=== PATIENT | female | born 1950 | race Caucasian/White ===

== ENCOUNTER 2016-04-18 12:59 | Inpatient (IN) | payer OTHER ==
[~2016-04-18] VITALS: Ht 167.6 cm; Wt 89.2 kg
[2016-04-18] MEDS ORDERED: DEXTROSE 50%, 50ML SYRINGE ONE (13:33)
[2016-04-18 13:53] LABS: HEMOGLOBIN 16.2 g/dL (11.7-16.4)
[2016-04-18] MEDS ORDERED: SODIUM CHLORIDE FLUSH 10ML SYR IVF ONE (14:00)
[2016-04-18 14:04] LABS: BLOOD UREA NITROGEN 12 mg/dL (7-18)
[2016-04-18] MEDS ORDERED: DEXTROSE 50%, 50ML SYRINGE IVPush ONE (14:30)
[2016-04-18] MEDS ORDERED: DEXTROSE 5%, 100ML IV ONE (14:30)
[2016-04-18 18:06] LABS: IS PT STATUS REG ER OR PRE ER? YES
[2016-04-18] MEDS ORDERED: ALBUTEROL/IPRATROPIUM 2.5MG/0.5MG, 3 ML NPPB ONE (19:00)
[2016-04-18] MEDS ORDERED: HYDR25TA6 PO (20:25)
[2016-04-18] MEDS ORDERED: GLYB5TAB3 PO (20:25)
[2016-04-18] MEDS ORDERED: METF10002 PO (20:25)
[2016-04-18] MEDS ORDERED: FLUO40CA9 PO (20:25)
[2016-04-18] MEDS ORDERED: ENAL20TA PO (20:25)
[2016-04-18] MEDS ORDERED: VERA240T86 PO (20:25)
[2016-04-18] MEDS ORDERED: FURO20TA3 PO (20:25)
[2016-04-18] MEDS ORDERED: SODIUM CHLORIDE FLUSH 10ML SYR IVF PRN (21:30)
[2016-04-18] MEDS ORDERED: ALBUTEROL/IPRATROPIUM 2.5MG/0.5MG, 3 ML NPPB PRN (22:30)
[2016-04-18 22:46] VITALS: BP 161/77
[2016-04-18] MEDS ORDERED: POLYETHYLENE GLYCOL 17 GM PACKET PO PRN (23:30)
[2016-04-18] MEDS ORDERED: DOCUSATE 100 MG CAPSULE PO PRN (23:30)
[2016-04-19 02:25] VITALS: BP 151/90
[2016-04-19 06:13] LABS: BLOOD UREA NITROGEN 18 mg/dL (7-18)
[2016-04-19 06:44] VITALS: BP 141/84
[2016-04-19] MEDS: GlyBURIDE 5 MG TABLET PO SCH (08:02)
[2016-04-19] MEDS: HYDROCHLOROTHIAZIDE 25 MG TABLET PO SCH (08:02)
[2016-04-19] MEDS: ENALAPRIL 20MG TABLET PO SCH (08:02)
[2016-04-19] MEDS: VERAPAMIL ER 240MG TABLET.ER PO SCH ×2 (08:02→21:44)
[2016-04-19] MEDS ORDERED: FLUTICASONE/VILANTEROL 100-25MCG/INH INH SCH (09:00)
[2016-04-19] MEDS ORDERED: ALBUTEROL SULFATE 2.5 MG/3 ML ONE (11:16)
[2016-04-19] MEDS ORDERED: ALBUTEROL SULFATE 2.5 MG/3 ML NPPB PRN (11:30)
[2016-04-19 13:40] VITALS: BP 148/81
[2016-04-19 17:45] VITALS: BP 155/91
[2016-04-19 20:00] VITALS: BP 150/88
[2016-04-20 03:18] VITALS: BP 129/81
[2016-04-20] MEDS ORDERED: ALBUTEROL SULFATE 2.5 MG/3 ML NPPB SCH (07:00)
[2016-04-20 07:55] VITALS: BP 124/75
[2016-04-20] MEDS: ENALAPRIL 20MG TABLET PO SCH (08:03)
[2016-04-20] MEDS: GlyBURIDE 5 MG TABLET PO SCH (08:03)
[2016-04-20] MEDS: HYDROCHLOROTHIAZIDE 25 MG TABLET PO SCH (08:04)
[2016-04-20] MEDS: VERAPAMIL ER 240MG TABLET.ER PO SCH (08:04)
[2016-04-20] MEDS ORDERED: FLUTICASONE/VILANTEROL 200-25MCG/INH INH SCH (09:00)
[2016-04-20] MEDS ORDERED: PRED20TA PO (12:54)
[2016-04-20] MEDS ORDERED: ALBU2.5V NEB (12:58)
[2016-04-20] MEDS ORDERED: ALBUTEROL SULFATE 2.5 MG/3 ML NPPB PRN (13:00)
[2016-04-20 13:46] VITALS: BP 111/67
[2016-04-20 15:48] VITALS: BP 147/80
== END 2016-04-20 15:45 | disposition home or self-care (01) | DRG 189 ==
LOC: ED 17:38 → INTOOBSV 21:06 → EDIP 21:06 → 5SO 22:38 → OBSVTOIN 04-19 15:12 → 4EST 04-19 17:33 → 4NOR 04-20 09:11
PROVIDERS: ADMIT Student in an Organized Health Care Education/Training Program; ATTEND Student in an Organized Health Care Education/Training Program
DX: J96.01 Acute respiratory failure with hypoxia (principal); J45.41 Moderate persistent asthma with (acute) exacerbation; E11.9 Type 2 diabetes mellitus without complications; E86.9 Volume depletion, unspecified; F17.210 Nicotine dependence, cigarettes, uncomplicated; F32.9 Major depressive disorder, single episode, unspecified; I10 Essential (primary) hypertension; E87.6 Hypokalemia; Z66 Do not resuscitate; Z82.49 Family history of ischemic heart disease and other diseases of the circulatory system; Z83.3 Family history of diabetes mellitus; Z91.19 Patient's noncompliance with other medical treatment and regimen; Z99.81 Dependence on supplemental oxygen; Z90.89 Acquired absence of other organs; Z98.890 Other specified postprocedural states; Z91.048 Other nonmedicinal substance allergy status; Z79.84 Long term (current) use of oral hypoglycemic drugs; Z79.899 Other long term (current) drug therapy; J06.9 Acute upper respiratory infection, unspecified
CPT/HCPCS: 36415; 71010; 80048; 81001; 82040; 82947; 82962; 83880; 84484; 85025; 87086; 93005; 94640; G0378; J7613; J7620; J7512

== ENCOUNTER 2017-02-01 12:50 | Inpatient (IN) | payer MEDICARE ==
[~2017-02-01] VITALS: Ht 152.4 cm; Wt 93.1 kg
[~2017-02-01 12:50] MED LIST: ALBU2.5V NEB; ENAL20TA PO; FLUO40CA9 PO; FURO20TA3 PO; GLYB5TAB3 PO; HYDR25TA6 PO; METF10002 PO; PRED20TA PO; VERA240T86 PO
[2017-02-01] MEDS ORDERED: SODIUM CHLORIDE 0.9% 1,000 ML IV ONE ×2 (13:30→16:54)
[2017-02-01] MEDS ORDERED: ALBUTEROL SULFATE 2.5 MG/3 ML NPPB ONE (13:30)
[2017-02-01] MEDS ORDERED: ACETAMINOPHEN 325 MG TABLET PO ONE (14:00)
[2017-02-01] MEDS ORDERED: ALBUTEROL SULFATE 2.5 MG/3 ML ONE (14:02)
[2017-02-01 14:06] LABS: RAPID INFLUENZA A POSITIVE (Negative); RAPID INFLUENZA B Negative (Negative)
[2017-02-01 14:37] LABS: HEMATOCRIT 40.1 % (34.6-47.8); HEMOGLOBIN 13.8 g/dL (11.7-16.4); WHITE BLOOD COUNT 8.6 x10^3/uL (3.4-10)
[2017-02-01 14:47] LABS: ASPARTATE AMINO TRANSFERASE 30 U/L (15-37); BLOOD UREA NITROGEN 13 mg/dL (7-18)
[2017-02-01 14:58] LABS: IS PT STATUS REG ER OR PRE ER? YES
[2017-02-01] MEDS ORDERED: DEXTROSE 50%, 50ML SYRINGE ONE (15:45)
[2017-02-01] MEDS ORDERED: DEXTROSE 50%, 50ML SYRINGE IVPush ONE (16:00)
[2017-02-01] MEDS ORDERED: CEFTRIAXONE PMX 1GM/50ML 50 ML ONE (16:39)
[2017-02-01] MEDS ORDERED: CEFTRIAXONE PMX 1GM/50ML 50 ML IVPB ONE (17:00)
[2017-02-01] MEDS ORDERED: SODIUM CHLORIDE FLUSH 10ML SYR IVF PRN (17:00)
[2017-02-01] MEDS ORDERED: GLUCAGON 1 MG IM PRN (17:30)
[2017-02-01] MEDS ORDERED: DEXTROSE 4 GM TAB.CHEW PO PRN (17:30)
[2017-02-01] MEDS: NICOTINE 14MG/24 HR PATCH.TD24 TD SCH (17:30)
[2017-02-01] MEDS ORDERED: DEXTROSE 50%, 50ML SYRINGE IVPush PRN (17:30)
[2017-02-01] MEDS ORDERED: ACETAMINOPHEN 325 MG TABLET PO PRN (17:30)
[2017-02-01 20:00] VITALS: BP 131/72
[2017-02-01] MEDS: INSULIN ASPART 100 UNITS/ML, PEN SQ-INSULIN SCH (21:00)
[2017-02-01] MEDS: SODIUM CHLORIDE FLUSH 10ML SYR IVF SCH (21:30)
[2017-02-01] MEDS ORDERED: PLEASE ENTER ALLERGIES MC SCH ×2 (21:30)
[2017-02-01] MEDS: HEPARIN 5,000 UNITS/ML, 1ML SQ SCH (21:47)
[2017-02-01] MEDS: VERAPAMIL ER 240MG TABLET.ER PO SCH (21:47)
[2017-02-01] MEDS: OSELTAMIVIR 75 MG CAPSULE PO SCH (21:47)
[2017-02-02] MEDS: HEPARIN 5,000 UNITS/ML, 1ML SQ SCH ×3 (02:23→17:30)
[2017-02-02 02:30] VITALS: BP 123/70
[2017-02-02 04:58] LABS: HEMATOCRIT 37.8 % (34.6-47.8); WHITE BLOOD COUNT 9.9 x10^3/uL (3.4-10)
[2017-02-02 05:04] LABS: BLOOD UREA NITROGEN 19 mg/dL (7-18)
[2017-02-02 06:37] VITALS: BP 112/64
[2017-02-02] MEDS: INSULIN ASPART 100 UNITS/ML, PEN SQ-INSULIN SCH ×5 (07:00→20:31)
[2017-02-02] MEDS: ALBUTEROL/IPRATROPIUM 2.5MG/0.5MG, 3 ML NPPB SCH ×4 (07:00→18:53)
[2017-02-02] MEDS: SODIUM CHLORIDE FLUSH 10ML SYR IVF SCH ×2 (09:00→20:32)
[2017-02-02] MEDS: SENNA/DOCUSATE TABLET PO SCH (09:00)
[2017-02-02] MEDS: HYDROCHLOROTHIAZIDE 25 MG TABLET PO SCH (09:48)
[2017-02-02] MEDS: VERAPAMIL ER 240MG TABLET.ER PO SCH ×2 (09:48→20:32)
[2017-02-02] MEDS: FLUOXETINE 20 MG CAPSULE PO SCH (09:48)
[2017-02-02] MEDS: ENALAPRIL 20MG TABLET PO SCH (09:49)
[2017-02-02] MEDS: OSELTAMIVIR 75 MG CAPSULE PO SCH ×2 (09:49→20:31)
[2017-02-02] MEDS: FLUTICASONE/VILANTEROL 100-25MCG/INH INH SCH (12:37)
[2017-02-02] MEDS ORDERED: GUAIFENESIN/DM 200-20MG, 10ML UDC PO PRN (15:30)
[2017-02-02 15:54] VITALS: BP 104/63
[2017-02-02] MEDS: NICOTINE 14MG/24 HR PATCH.TD24 TD SCH (17:30)
[2017-02-02 20:04] VITALS: BP 126/70
[2017-02-03] MEDS: HEPARIN 5,000 UNITS/ML, 1ML SQ SCH ×2 (01:50→09:30)
[2017-02-03 02:07] VITALS: BP 123/68
[2017-02-03] MEDS ORDERED: PNEUMOCOCCAL 23 VACCINE IM-VACC ONE (06:30)
[2017-02-03 06:44] LABS: ASPARTATE AMINO TRANSFERASE 22 U/L (15-37); BLOOD UREA NITROGEN 31 mg/dL (7-18)
[2017-02-03] MEDS: INSULIN ASPART 100 UNITS/ML, PEN SQ-INSULIN SCH (07:00)
[2017-02-03] MEDS: ALBUTEROL/IPRATROPIUM 2.5MG/0.5MG, 3 ML NPPB SCH (07:37)
[2017-02-03 08:07] VITALS: BP 101/53
[2017-02-03] MEDS ORDERED: PRED20TA PO (08:07)
[2017-02-03] MEDS: OSELTAMIVIR 75 MG CAPSULE PO SCH (08:55)
[2017-02-03] MEDS: VERAPAMIL ER 240MG TABLET.ER PO SCH (08:56)
[2017-02-03] MEDS: FLUOXETINE 20 MG CAPSULE PO SCH (08:56)
[2017-02-03] MEDS: HYDROCHLOROTHIAZIDE 25 MG TABLET PO SCH (08:56)
[2017-02-03] MEDS: FLUTICASONE/VILANTEROL 100-25MCG/INH INH SCH (08:56)
[2017-02-03] MEDS: SENNA/DOCUSATE TABLET PO SCH (08:58)
[2017-02-03] MEDS: SODIUM CHLORIDE FLUSH 10ML SYR IVF SCH (08:58)
[2017-02-03] MEDS: ENALAPRIL 20MG TABLET PO SCH (08:59)
== END 2017-02-03 11:11 | disposition home or self-care (01) | DRG 193 ==
LOC: ED 17:05 → EDIP 17:10 → 4EST 19:05
PROVIDERS: ADMIT Family Medicine; ATTEND Family Medicine
DX: J10.08 Influenza due to other identified influenza virus with other specified pneumonia (principal); J96.01 Acute respiratory failure with hypoxia; I50.41 Acute combined systolic (congestive) and diastolic (congestive) heart failure; I13.0 Hypertensive heart and chronic kidney disease with heart failure and stage 1 through stage 4 chronic kidney disease, or unspecified chronic kidney disease; Z68.41 Body mass index [BMI] 40.0-44.9, adult; J44.1 Chronic obstructive pulmonary disease with (acute) exacerbation; E11.22 Type 2 diabetes mellitus with diabetic chronic kidney disease; E11.649 Type 2 diabetes mellitus with hypoglycemia without coma; N18.2 Chronic kidney disease, stage 2 (mild); F17.200 Nicotine dependence, unspecified, uncomplicated; Z91.048 Other nonmedicinal substance allergy status; E66.9 Obesity, unspecified; F32.9 Major depressive disorder, single episode, unspecified; Z79.899 Other long term (current) drug therapy; Z99.81 Dependence on supplemental oxygen
CPT/HCPCS: 36415; 71010; 80048; 80053; 81003; 82947; 82962; 83036; 83605; 83880; 84145; 84484; 85025; 87040; 87400; 90732; 93005; 94640; 96361; 96365; 96366; 96375; J0696; J1644; J1815; J7613; J7620; J7030; J7512